=== PATIENT | female | born 1970 | race African-American/Black ===

== ENCOUNTER 2020-01-17 06:25 | Day surgery (SDC) | payer OTHER ==
[2020-01-17] MEDS ORDERED: WATER FOR IRRIG STERILE 1,000 ML BOTTLE ONE (07:15)
[2020-01-17] MEDS ORDERED: WATER FOR IRRIG STERILE 250 ML BOTTLE IR ONE (07:15)
--- NOTE | 2020-01-17 07:29 | Anesthesia Consultation ---
Anesthesia Consult and Med Hx Date of service: 01/17/20 - Airway Anesthetic Teeth Evaluation: Good ROM Head & Neck: Adequate Mental/Hyoid Distance: Adequate Mallampati Class: Class II Intubation Access Assessment: Probably Good - Pre-Operative Health Status ASA Pre-Surgery Classification: ASA1 Proposed Anesthetic Plan: MAC - Additional Comments Anesthesia Medical History Comments: screening colonoscopy
[2020-01-17] MEDS ORDERED: SODIUM CHLORIDE 0.9% 1000 ML 1,000 ML IV SCH (07:30)
--- NOTE | 2020-01-17 07:30 | Anesthesia Day of Surgery ---
Anesthesia Day of Surgery - Day of Surgery Patient Examined: Yes Patient H&P Reviewed: Yes Patient is NPO: Yes
[2020-01-17] MEDS ORDERED: LIDOCAINE (2%) 20 MG/1 ML VIAL 20 ML MDV INFILTRATI ONE (07:38)
[2020-01-17] MEDS ORDERED: propofoL 200 MG/20 ML VIAL IV ONE ×2 (07:38→08:36)
--- NOTE | 2020-01-17 08:45 | Operative Report ---
Operative Report Operative Report: DOS: 01/17/2020 SURGEON: Chi Lujan MD COLONOSCOPY with snare polypectomy and biopsy REPORT PREOPERATIVE AND POSTOPERATIVE DIAGNOSIS: rectal mass DESCRIPTION OF PROCEDURE: The colonoscope was passed to the terminal ileum as identified by the ileal tissue. Scope was carefully withdrawn. Retroflexion was performed in the rectum. At the end of procedure, the scope was cleaned using normal technique. Vital signs monitored continuously throughout. SEDATION: Provided by Anesthesiology Services. Quality of the prep was adequate. COMPLICATIONS: None. ESTIMATED BLOOD LOSS: 10cc FINDINGS: * Rectal mass palpated on digital rectal exam * Large rectal mass in the distal rectum occupying 90% of the circumference. The lesion started approximately 3 cm from the anal verge and was approximately 5 cm in length. Malignant appearing, friable, with spontaneous oozing of blood * 12 mm semi-pedunculated polyp in the sigmoid colon removed with hot snare polypectomy * Normal terminal ileum * Remainder of the exam was normal RECOMMENDATIONS: Follow-up pathology results, refer to colorectal surgeon given location of the lesion First degree relatives require colonoscopy starting at age 40 and every 5 years or after Patient requires colonoscopy in 1 year than 3 years and every 5 years thereafter
[2020-01-17 08:58] VITALS: BP 129/63
--- NOTE | 2020-01-17 13:19 | Post Anesthesia Evaluation ---
- Post Anesthesia Evaluation Patient Participated: Yes Airway Patent: Yes Stable Respiratory Function: Yes Nausea/Vomiting: No Temp > 96.8F: Yes Pain Manageable: Yes Adequeate Hydration: Yes Anesthesia Complications: No
== END 2020-01-17 06:26 | disposition home or self-care (01) ==
LOC: GIO 06:25
PROVIDERS: ATTEND Student in an Organized Health Care Education/Training Program
DX: Z12.11 Encounter for screening for malignant neoplasm of colon (principal); D12.5 Benign neoplasm of sigmoid colon; K62.89 Other specified diseases of anus and rectum; K64.8 Other hemorrhoids
CPT/HCPCS: 45380; 45385; 88305; 88341; 88342; J2704; J7030